=== PATIENT | male | born 1975 | race Caucasian/White ===

== ENCOUNTER 2020-07-14 14:08 | Outpatient (CLI) | payer OTHER, SELFPAY ==
--- NOTE | ~2020-07-14 | CT_ITS ---
EXAMINATION: CTA brain DATE: 07/14/2020 15:03 INDICATION: Headache. TECHNIQUE: Computed tomographic angiography (CTA) of the head was performed without and with 100 mL O mnipaque-350 intravenous contrast. Automated exposure control and iterative reconstruction technique were employed. The dose-length product was 1215.60 mGy-cm. Maximum intensity projection 3D reconstru ctions were created. Volume-rendered 3D reconstructions of the intracranial arteries were created by the technologist on a separate workstation. COMPARISON: Brain MRI 01/08/2018 FINDINGS: There is no intracranial hemorrhage, acute infarction, or abnormal intracranial mass lesion . There is a dystrophic calcification in the right frontal lobe deep white matter. The ventricles are normal in size. There is mild mucosal thickening in the ethmoid sinuses. The orbits are normal. The mastoid air cells are normal. The vertebral arteries are codominant. There is no significant stenosis of basilar artery or the posterior cerebral arteries. The cervical internal carotid arteries are nor mal. There is no significant stenosis of the intracranial internal carotid arteries or anterior or mi ddle cerebral arteries. Anterior communicating artery is normal. Posterior communicating arteries are not identified. There is no aneurysm. IMPRESSION: 1. No etiology for the patient's symptoms. Reviewed, dictated and finalized at location A. L OPERATOR WHISKEY
== END 2020-07-14 14:09 ==
PROVIDERS: PCP Family Medicine; Visit Provider Family Medicine
DX: R51.9 Headache, unspecified (principal)
CPT/HCPCS: 70496; Q9967

== ENCOUNTER 2020-08-05 11:30 | Outpatient (CLI) | payer OTHER, SELFPAY | END 2020-08-05 11:31 | disposition home or self-care (01) | LOC: ANHCOVIDVC 11:30 | PROVIDERS: PCP Family Medicine | DX: Z23 Encounter for immunization (principal) | CPT/HCPCS: 0001A; 91300 ==

== ENCOUNTER 2020-08-26 11:31 | Outpatient (CLI) | payer OTHER, SELFPAY | END 2020-08-26 11:32 | disposition home or self-care (01) | LOC: ANHCOVIDVC 11:31 | PROVIDERS: PCP Family Medicine | DX: Z23 Encounter for immunization (principal) | CPT/HCPCS: 0002A; 91300 ==

== ENCOUNTER 2022-09-07 07:36 | Outpatient (CLI) | payer OTHER, SELFPAY ==
[2022-09-07 08:26] LABS: Basophils Percent Auto 0.6 % (0.2-1.2); Eosinophils Absolute Auto 0.1 K/mm3 (0-0.3); Eosinophils Percent Auto 1.9 % (0-4.4); Hemoglobin 16.1 g/dL (14.0-18.0); Immature Granulocyte Absolute 0.01 K/mm3 (0.00-0.031); Immature Granulocyte Percent A 0.2 % (0-0.5); Lymphocytes Absolute Auto 1.41 K/mm3 (0.9-3.2); Lymphocytes Percent Auto 26.2 % (18.3-44.2); Mean Corpuscular HGB Conc 32.9 g/dl (32-36); Mean Corpuscular Hemoglobin 30.6 pg (26-34); Mean Platelet Volume 9.9 fl (7.4-10.4); Monocytes Absolute Auto 0.4 K/mm3 (0.1-0.6); Monocytes Percent Auto 6.9 % (2.6-8.5); Neutrophils Absolute Auto 3.5 K/mm3 (1.3-6.7); Neutrophils Percent Auto 64.2 % (45.5-73.1); Platelet Count Result 217 k/mm3 (150-375); Red Blood Count 5.27 M/mm3 (4.6-6.20); Red Cell Distribution Width 13.2 % (11.5-14.5); White Blood Count 5.4 K/mm3 (4.5-10.0)
[2022-09-07 08:32] LABS: Anion Gap 5 mmol/L (8-16); Blood Urea Nitrogen 14 mg/dL (9-20); Carbon Dioxide 30 mmol/L (22-30); Chloride 104 mmol/L (98-107); Estimated Glomerular Filt Rate > 60; Glucose 104 mg/dL (65-110); Potassium 4.4 mmol/L (3.4-5.0); Sodium 139 mmol/L (137-145)
[2022-09-07 08:34] LABS: INR 1.1; Prothrombin Time 13.6 Seconds (11.1-14.7)
[2022-09-07 08:35] LABS: Partial Thromboplastin Time 28.6 SECONDS (22.3-36.8)
== END 2022-09-07 07:37 | disposition home or self-care (01) ==
LOC: ANHSURGERY 07:42
PROVIDERS: PCP Family Medicine; Visit Provider Urology
DX: N40.0 Benign prostatic hyperplasia without lower urinary tract symptoms (principal); Z01.818 Encounter for other preprocedural examination
CPT/HCPCS: 36415; 80048; 85025; 85610; 85730; 87086; 87088

== ENCOUNTER 2022-09-11 01:24 | Day surgery (SDC) | payer OTHER, SELFPAY ==
[2022-09-04 12:49] VITALS: BMI 31.8
--- NOTE | 2022-09-04 12:54 | PC.NURSE ---
Report to the Outpatient Waiting Room, entrance under the green pavilion located off [facility], at time 6:00 on date 09/11/22. Planned Procedure Time: 7:30. Time changes happen often and if your time is changed the preop area will call you the afternoon before. - You and your visitor will be asked to self-screen and do not enter if you have any COVID symptoms. - Only one visitor is requested with a max of two and NO children visitors are allowed at this time. - The patient visitor may be requested to leave or wait in car when not with patient due to distancing restrictions. - A mask is optional within the hospital at this time. Patients may have clear liquids (water, carbonated beverages, clear teas, apple juice) until 3 hours prior to surgery (4:30) with a maximum of 20 ounces. - No food from midnight until time of surgery Take the following medications with a SIP of water the morning of surgery: N/A DO NOT STOP ANY OF YOUR OTHER PRESCRIPTION MEDICATIONS PRIOR TO SURGERY EXCEPT THE FOLLOWING Medications to discontinue per physician: N/A Date to take last dose: N/A Please no make-up, nail emirati, hairspray, perfume, deodorant, or body powder the day of surgery. No jewelry (including any body piercings) or valuables the day of surgery, leave them at home. Please take a shower or bath the night before, or the morning of, surgery with an antibacterial soap. Wear comfortable, loose fitting clothing. - Jewelry must be removed prior to entering the operating room. Rings and piercings that are not removed may be cut off. - The hospital will not accept responsibility for valuables. - Please leave all valuables, including medications, at home the day of surgery. If you are going home after surgery, a licensed jitney driver must drive you home. - NO public transportation without another adult if you receive anesthesia. - We recommend that an adult stay with you for 24 hours following discharge. - We also recommend that you do not drive, make important decision, drink alcoholic beverages, or take any drugs that were not prescribed by your health care provider for at least 24 hours after your discharge time. Follow any additional instructions given to you from your surgeon. If you or anyone in your household have experienced Covid symptoms in the past week, please notify your surgeon or the nurse liaison at the phone number below for possible testing. Telephone instructions given to THOMAS TORIBIO and asked if any additional questions and then verbalized understanding. Patient advised to call surgeon office or pre surgery nurse liaison [phone] if any additional questions.
--- NOTE | 2022-09-10 14:35 | WPDANESEPPF ---
Anes - Initial Pre Proc Eval Procedure: Operation Date: 09/11/22 07:30 Proposed Procedures p Trans Urethral Resection Prostate - Andrzej Lara MD Date/Time: 09/10/22 14:35 Surgeon: Andrzej Lara MD Pre Op Diagnosis: bph, over active bladder Patient Data Age: 47 Gender: M Height: 1.83 m Weight: 106.6 kg Allergies Allergy/AdvReac Type Severity Reaction Status Date / Time No Known Allergies Allergy Mild Verified 09/11/22 06:04 Home Medications Medication Instructions Recorded Confirmed Type tamsulosin 0.4 mg capsule 0.4 mg PO DAILY #30 caps 07/01/20 09/11/22 Rx cetirizine 10 mg tablet (Zyrtec) 10 mg PO DAILY 09/04/22 09/11/22 History Patient hx anesthesia problems: none Family hx anesthesia problems: none Results Review: All pre-operative results and documents have been reviewed as part of the pre-operative evaluation. [facility] Past Medical History Medical History (Updated 09/10/22 @ 14:36 by Prem Grier DO) BPH (benign prostatic hyperplasia) Epistaxis, recurrent Occipital headache Surgical History Surgical History H/O sinus surgery Family History Family History Father , 64 yrs old Esophageal cancer Other Diabetes mellitus Social History Social History (Updated 07/01/20 @ 08:02 by Ondina Greer) Social History: Smoking status: Never smoker Second hand tobacco smoke exposure: No Alcohol intake: current Drinks per week: 2 Substance use: current Substance use type: marijuana Living arrangements: alone Occupation/Education: occupation Gender identity (if verbalized by the patient): Male Sexual Orientation (if Verbalized by the Patient): Straight or Heterosexual Spiritual care concerns: No Anes - Eval Final PreProcedure Day of Procedure 09/10/22 14:35 Patient weight: obese Heart: regular rate and rhythm Lungs: clear to auscultation Airway: Mallampati scale class II Neurological: alert and oriented Last oral intake: >/= 8 hours ASA classification: II Emergent: no Anesthetic plan: proceed Anesthesia type and monitoring: general LMA and standard monitoring Results Review: All pre-operative results and documents have been reviewed as part of the pre-operative evaluation. Informed Consent: The patient's anesthetic plan and its attendant risks and benefits were discussed with the patient/family/POA. Questions were solicited and answers provided to the satisfaction of the patient/family/POA.
[2022-09-11] VITALS (14 sets, daily range): BP systolic 117–157; BP diastolic 72–96; PULSE 62–77; RESP 13–19; TEMP 36.4–37.2; O2SAT 96–100
[2022-09-11] MEDS: LACTATED RINGERS 1,000 ML 30 ML IV CONT ×2 (06:27→08:24)
--- NOTE | 2022-09-11 07:23 | WPDHPUPDATE1 ---
History and Physical Update Update Date/Time: 09/11/22 07:23 History and Physical has been reviewed, including an updated exam of the patient. There are NO changes in the patient's condition. Risks, benefits, and alternatives have been discussed and questions answered. Patient agrees to proceed with procedure. Proceed with TURP
[2022-09-11] MEDS: ceFAZolin 2 GM/D5W 50 ML 2 GM/50 ML BAG IVPB (07:30)
[2022-09-11] MEDS: LIDOCAINE HCL 2% GEL UROJET 10 ML PKG MUCOUS MEM (08:07)
--- NOTE | 2022-09-11 08:18 | P.OP_ITS ---
Procedure Note - Detailed Date of Procedure 09/11/22 Pre-op Diagnosis bph, over active bladder Post-op Diagnosis Same Procedure Performed Transurethral resection of prostate Surgeon Andrzej Lara MD Anesthesia General Findings Asymmetry of the prostate with the left lobe having a cystic component at the bladder neck causing obstruction Description of Procedure Patient is taken the operative suite correctly identified. Once anesthesia was obtained was placed in dorsal lithotomy position and prepped draped usual sterile fashion. Urethra was dilated to 24 Turkmen. Twenty-four Turkmen resectoscope sheath was inserted in the bladder. Patient has somewhat of an unusual appearing prostate and then the left lobe is crossing the midline and is protruding into the bladder. It is obscuring the left ureteral orifice. No tumors were noted. Went ahead and started resecting this left lobe went ahead a cystic component right at the bladder neck area. We then resected from the bladder neck to the verumontanum. We went from 6:00 to 12:00 p.m.. This was then done on the right side. A conservative resection was performed given his young age. The prostate was not overly enlarged. I think this left lobe and cystic component was causing most of his issues. Hemostasis was achieved using electrocautery. 2% viscous lidocaine was inserted into the urethra a [address] was placed with 15 cc in the balloon. Chips were sent for analysis. Samm magallanes send a copy of this op note to my office. Estimated Blood Loss 20 Drains Yes Packing No Pathology Yes Complications No immediate complications Condition Stable Disposition PACU
[2022-09-11] MEDS: DEXTROSE 5%/LACTATED RINGERS 1,000 ML 125 ML IV CONT (10:36)
[2022-09-11] MEDS: DOCUSATE SODIUM 100 MG CAPSULE PO ×2 (10:39→17:00)
--- NOTE | 2022-09-11 10:43 | PC.NURSE ---
This patient, Helio Hernandez, was admitted to Medical Room 349-01. Patient/family oriented to hospital policies and general routines including ID bracelet, bed and alarms, visiting hours, pain management, procedures, bathroom and other care routines, personal items, smoking policy, room service/diet, and visiting hours. Information on how to activate the Rapid Response Team has been discussed. Patient/Family are encouraged to report perceived risks to care and to ask questions if they do not understand what they are told or what they should do.
--- NOTE | 2022-09-11 11:42 | PC.NURSE ---
Called Dr. Lara for tylenol orders. Patient has a headache.
[2022-09-11] MEDS: HYDROcodone/acetaminophen (*CRX) 5-325 MG TABLET 1 TAB PO ×2 (11:44→17:06)
[2022-09-11] MEDS: ceFAZolin 1 GM/NS 50 ML 1 GM/50 ML BAG IVPB ×2 (16:59→23:48)
[2022-09-12 03:50] VITALS: BP 114/70; PULSE 96; RESP 16; TEMP 36.7; O2SAT 99
[2022-09-12 05:47] LABS: Hematocrit 44.7 % (42.0-52.0); Hemoglobin 14.7 g/dL (14.0-18.0)
[2022-09-12] MEDS: CEPHALEXIN 500 MG CAPSULE PO (06:09)
[2022-09-12] MEDS: DOCUSATE SODIUM 100 MG CAPSULE PO (08:39)
--- NOTE | 2022-09-12 13:12 | WPDUROPN2 ---
Progress Note: A&P Assessment and Plan (1) BPH (benign prostatic hyperplasia): Code(s): N40.0 - Benign prostatic hyperplasia without lower urinary tract symptoms Status: Acute Assessment and Plan: Ok to discharge home. Subjective Subjective Date/Time Seen: 09/12/22 13:12 Transurethral resection of prostate Post Op day: 1 Principal diagnosis: BPH Review of Systems Cardiovascular: Cardiovascular: Denies chest pain Respiratory: Respiratory: Reports no additional respiratory complaints Gastrointestinal: Gastrointestinal: Reports abdominal pain, Denies nausea and Denies vomiting Genitourinary: Genitourinary: Denies hematuria, Denies dysuria, Denies flank pain, Denies urinary frequency, Denies urinary hesitancy, Denies urinary incontinence and Denies urinary urgency Exam Const: General: cooperative Resp: Effort & Inspection: normal respiratory effort Cardio: Rate: regular rate GI: GI Palp: Yes Soft to palpation and No Tenderness to palpation present (GI) : General: Yes no CVA tenderness Urinary Catheter: Urinary Catheter: patent and draining and urine clear Back/Spine/Pelvis: Back: no CVA tenderness Extrem: Right lower extremity: no edema Left lower extremity: no edema Objective Data Vital Signs Vital Signs: Vital Signs - 24 hr 09/11/22 15:50 09/11/22 19:50 09/11/22 23:50 Temperature 97.9 F 97.9 F 97.9 F Pulse Rate 63 64 64 Respiratory Rate 16 18 16 Blood Pressure 136/83 140/72 140/76 Pulse Oximetry 97 99 97 Oxygen Delivery 09/12/22 03:50 09/12/22 08:30 Temperature 98.0 F Pulse Rate 96 Respiratory Rate 16 Blood Pressure 114/70 Pulse Oximetry 99 Oxygen Delivery Room Air Intake/Output Intake/Output: Intake & Output 09/09/22 09/10/22 09/11/22 09/12/22 23:59 23:59 23:59 23:59 Intake Total 2210 240 Output Total [id number] [id number] Meds/Results Medications: Active Medications Generic Name Dose Route Start Last Admin Trade Name Freq PRN Reason Stop Dose Admin Hydrocodone Bitart/Acetaminophen 1 tab 09/11/22 10:05 09/11/22 17:06 Hydrocodone/Acetaminophen (*Crx) 5-325 Mg Tablet PO 1 tab Q4H PRN Administration Pain Rated 1-6 Cephalexin HCl 500 mg 09/12/22 06:00 09/12/22 06:09 Cephalexin 500 Mg Capsule PO 500 mg Q6HR MARLON Administration Docusate Sodium 100 mg 09/11/22 11:00 09/12/22 08:39 Docusate Sodium 100 Mg Capsule PO 100 mg BID MARLON Administration Hyoscyamine 0.125 mg 09/11/22 10:05 Hyoscyamine Sulfate 0.125 Mg Tablet SUBLINGUAL Q6H PRN Bladder Spasm Morphine Sulfate 2 mg 09/11/22 10:05 Morphine Sulfate (*Crx) 2 Mg/Ml Inj IV PUSH Q2H PRN Pain Rated 7-10 Naloxone HCl 0.1 mg 09/11/22 10:05 Naloxone Hcl 0.4 Mg/Ml Vial IV PUSH Q2M PRN Opiate Reversal Ondansetron HCl 4 mg 09/11/22 10:05 Ondansetron Inj 4 Mg/2 Ml Vial IV PUSH Q12H PRN Nausea And Vomiting Labs Labs: Laboratory Results - last 24 hr 09/12/22 05:36 Hgb 14.7 Hct 44.7
== END 2022-09-12 14:00 | disposition home or self-care (01) ==
LOC: ANHSURGERY 05:59 → ANH3MED 13:18
PROVIDERS: PCP Family Medicine; Visit Provider Urology
PROC: 0VT08ZZ Resection of Prostate, Via Natural or Artificial Opening Endoscopic (ICD-10-PCS; CPT 52601; principal; 2022-09-11 07:30)
DX: N40.1 Benign prostatic hyperplasia with lower urinary tract symptoms (principal); N13.8 Other obstructive and reflux uropathy; N32.81 Overactive bladder; N42.83 Cyst of prostate; F12.90 Cannabis use, unspecified, uncomplicated; E66.9 Obesity, unspecified; Z68.33 Body mass index [BMI] 33.0-33.9, adult
CPT/HCPCS: 52601; 36415; 80048; 85014; 85018; 85025; 85610; 85730; 87086; 88305; A9270; J0690; J1100; J1170; J2250; J2405; J2704; J3010; J7120; J7121

== ENCOUNTER 2023-06-07 08:19 | Emergency (ER) | payer OTHER, SELFPAY ==
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
[2023-06-07 08:24] VITALS: BP 155/106; PULSE 68; RESP 16; TEMP 37; O2SAT 98
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
== END 2023-06-07 09:49 | disposition home or self-care (01) ==
PROVIDERS: Emergency Provider Emergency Medicine; PCP Family Medicine
DX: S60.221A Contusion of right hand, initial encounter (principal); N40.0 Benign prostatic hyperplasia without lower urinary tract symptoms; V43.52XA Car driver injured in collision with other type car in traffic accident, initial encounter
CPT/HCPCS: 73130; 99283

== ENCOUNTER 2023-07-16 15:52 | Outpatient (CLI) | payer OTHER, SELFPAY ==
--- NOTE | ~2023-07-16 | MR_ITS ---
MRI of the right hand CLINICAL HISTORY: Pain TECHNIQUE: Axial T1-weighted and T2 fat-sat images, coronal T1-weighted and T2 fat-sat images, and sa gittal T1-weighted and T2 fat-sat images were acquired. FINDINGS: Bone marrow signals are unremarkable. No fracture, or marrow edema seen. There is probable mild to moderate degenerative change of the first CMC joint. Remaining joint spaces are unremarkable. No joint effusion seen. Collateral ligaments and the hand/fingers appear intact. Flexor and extensor tendons are intact. Intrinsic musculature of the hand is unremarkable. No soft ti ssue mass or fluid collection seen. IMPRESSION: Mild to moderate degenerative change of the first CMC joint. No other significant findings. Reviewed, dictated and finalized at location . ND DEVELOPER
== END 2023-07-16 15:53 ==
PROVIDERS: PCP Internal Medicine; Visit Provider Internal Medicine
DX: M79.641 Pain in right hand (principal)
CPT/HCPCS: 73218

== ENCOUNTER 2023-07-30 03:44 | Day surgery (SDC) | payer OTHER, SELFPAY ==
[2023-07-16 15:03] VITALS: BMI 33.9
[2023-07-30 09:44] VITALS: BP 167/101; PULSE 20; RESP 20; TEMP 36.4; O2SAT 100; BMI 32.7
[2023-07-30] MEDS: LACTATED RINGERS 1,000 ML 150 ML IV CONT (10:05)
--- NOTE | 2023-07-30 10:14 | WPDANESEPPF ---
Anes - Initial Pre Proc Eval Procedure: Operation Date: 07/30/23 11:00 Proposed Procedures p Esophagogastroduodenoscopy & Colonoscopy - Tyrell Horton MD Date/Time: 07/30/23 10:14 Surgeon: Tyrell Horton MD Pre Op Diagnosis: GERD,Dysphagia Patient Data Age: 48 Gender: M Height: 1.83 m Weight: 109.4 kg Last Vital Signs Temp 36.4 C L 07/30/23 09:44 Pulse 20 L 07/30/23 09:44 Resp 20 07/30/23 09:44 BP 167/101 H 07/30/23 09:44 Pulse Ox 100 07/30/23 09:44 O2 Del Method Room Air 07/30/23 09:44 Allergies Allergy/AdvReac Type Severity Reaction Status Date / Time No Known Allergies Allergy Mild Verified 07/30/23 09:52 Home Medications Medication Instructions Recorded Confirmed Type omeprazole 40 mg capsule,delayed 40 mg PO DAILY #30 caps 07/11/23 07/30/23 Rx release Patient hx anesthesia problems: none Family hx anesthesia problems: none Results Review: All pre-operative results and documents have been reviewed as part of the pre-operative evaluation. [facility] Past Medical History Medical History BPH (benign prostatic hyperplasia) Colon cancer screening Dysphagia Elevated blood pressure reading Epistaxis, recurrent Family history of esophageal cancer Obesity Occipital headache Surgical History Surgical History H/O sinus surgery Family History Family History Father , 64 yrs old Esophageal cancer Depression Mother Hypertension Depression Diabetes mellitus Cancer Sibling Depression Asthma Hypertension Daughter Depression Grandparent Diabetes mellitus Hypertension Cancer Alcoholism Heart disease Cerebrovascular accident Social History Social History Smoking status: Never smoker Second hand tobacco smoke exposure: No Alcohol intake: current Drinks per week: 2 Alcohol use details: occasional Substance use: current Substance use type: marijuana Other substance usage details: Edible gummies occasionally Lack of Transportation: No Lack of Food: Never True Current Housing: I Have Housing Concerned About Future Housing: No Difficulty Paying Gas/Electric Bills: No Difficulty Paying for Meds: No Currently Unemployed: No Education: Decline to Answer Difficulty w/ Childcare or Family Care: Decline to Answer Living arrangements: alone Occupation/Education: occupation Gender identity (if verbalized by the patient): Male Sexual Orientation (if Verbalized by the Patient): Straight or Heterosexual Spiritual care concerns: No Anes - Eval Final PreProcedure Day of Procedure 07/30/23 10:14 Patient weight: obese Heart: regular rate and rhythm Lungs: clear to auscultation Airway: Mallampati scale class II Neurological: alert and oriented Last oral intake: >/= 8 hours ASA classification: II Emergent: no Anesthetic plan: proceed Anesthesia type and monitoring: general GIVS and standard monitoring Results Review: All pre-operative results and documents have been reviewed as part of the pre-operative evaluation. Informed Consent: The patient's anesthetic plan and its attendant risks and benefits were discussed with the patient/family/POA. Questions were solicited and answers provided to the satisfaction of the patient/family/POA.
--- NOTE | 2023-07-30 10:54 | WPDHPUPDATE1 ---
History and Physical Update Update Date/Time: 07/30/23 10:54 History and Physical has been reviewed, including an updated exam of the patient. There are NO changes in the patient's condition. Risks, benefits, and alternatives have been discussed and questions answered. Patient agrees to proceed with procedure.
--- NOTE | 2023-07-30 11:00 | SUR.OPER ---
EGD: START END-1103, COLON: START END-1115
[2023-07-30 11:21] VITALS: BP 123/90; PULSE 87; RESP 19; O2SAT 98
[2023-07-30 11:31] VITALS: BP 140/90; PULSE 86; RESP 17; O2SAT 96
[2023-07-30 11:41] VITALS: BP 141/81; PULSE 83; RESP 22; O2SAT 97
== END 2023-07-30 11:51 | disposition home or self-care (01) ==
PROVIDERS: PCP Internal Medicine; Visit Provider Internal Medicine Gastroenterology
PROC: 0DJ08ZZ Inspection of Upper Intestinal Tract, Via Natural or Artificial Opening Endoscopic (ICD-10-PCS; CPT 43235; principal; 2023-07-30 11:00)
DX: Z12.11 Encounter for screening for malignant neoplasm of colon (principal); Z80.0 Family history of malignant neoplasm of digestive organs; K21.9 Gastro-esophageal reflux disease without esophagitis; K64.8 Other hemorrhoids; E66.9 Obesity, unspecified
CPT/HCPCS: 43239; 45380; 45385; 88305; J2704; J7120